=== PATIENT | male | born 1980 | race Hispanic/Latino ===

== ENCOUNTER → 2022-07-15 | Outpatient (CLI) | payer OTHER | END | disposition home or self-care (01) | LOC: RAH 08:56 | PROVIDERS: ATTEND Surgery | DX: K62.3 Rectal prolapse (principal) | CPT/HCPCS: 74270 ==

== ENCOUNTER → 2024-01-08 03:04 | Emergency (ER) | payer OTHER ==
[~2024-01-08] VITALS: Ht 165.1 cm; Wt 77.1 kg
[2024-01-08 03:04] VITALS: BP 120/74; PULSE 71; RESP 19
[~2024-01-08 03:04] MED LIST: ASPIRIN 325MG TAB PO ONE; DOCU-116 PO; L.AC1CAP6 PO; LORAZEPAM 2 MG/ML 1 ML VIAL IM ONE; NITROGLYCERIN 1GM OINT 1 INCH/1GM TD ONE; PSYL0.4C2 PO
== END | disposition left against medical advice (07) ==
LOC: EDH 03:04
DX: R45.851 Suicidal ideations (principal); F20.9 Schizophrenia, unspecified; F31.9 Bipolar disorder, unspecified; Z79.899 Other long term (current) drug therapy

== ENCOUNTER 2024-01-27 10:13 | Emergency (ER) | payer BC, OTHER ==
[~2024-01-27] VITALS: Ht 170.2 cm; Wt 77.1 kg
[~2024-01-27 10:13] MED LIST changes: -ASPIRIN 325MG TAB PO ONE; -LORAZEPAM 2 MG/ML 1 ML VIAL IM ONE; -NITROGLYCERIN 1GM OINT 1 INCH/1GM TD ONE
[2024-01-27] MEDS: ONDANSETRON 4MG INJ IVP ONE (11:15)
[2024-01-27] MEDS: MORPHINE 4 MG SYG IVP ONE (11:15)
[2024-01-27 11:40] LABS: BASOPHILS # (AUTO) 0.04 K/uL (0.00-0.20); BASOPHILS % (AUTO) 0.5 % (0.0-5.0); EOSINOPHILS # (AUTO) 0.07 K/uL (0.00-0.70); EOSINOPHILS % (AUTO) 0.9 % (0.0-8.0); HEMATOCRIT 41.5 % (42-54); IMMATURE GRANULOCYTE ABSOLUTE 0.03 K/uL (0-1); LYMPHOCYTES # (AUTO) 2.1 K/uL (1.0-4.8); LYMPHOCYTES % (AUTO) 25.2 % (21.0-51.0); MEAN CORPUSCULAR HGB CONC 34.9 g/dL (32.0-36.0); MEAN CORPUSCULAR VOLUME 94.3 fL (79-99); MONOCYTES # (AUTO) 0.6 K/uL (0.1-1.0); MONOCYTES % (AUTO) 7.1 % (3.0-13.0); NEUTROPHILS # (AUTO) 5.4 K/uL (1.8-7.7); NEUTROPHILS % (AUTO) 65.9 % (40.0-77.0); PLATELET COUNT (AUTO) 202 K/uL (130-400); RED CELL DISTRIBUTION WIDTH 11.8 % (11.0-15.5); WHITE BLOOD COUNT (AUTO) 8.2 K/uL (4.8-10.8)
[2024-01-27 11:44] LABS: CREATININE 0.9 mg/dL (0.5-1.3)
[2024-01-27 11:48] LABS: ALBUMIN 3.9 g/dL (3.5-5.0); BILIRUBIN,TOTAL 0.4 mg/dL (0.2-1.0); TOTAL PROTEIN, SERUM 7.5 g/dL (6.0-8.3)
[2024-01-27 13:14] LABS: APPEARANCE,URINE CLEAR (CLEAR); BILIRUBIN,URINE NEGATIVE (NEGATIVE); COLOR,URINE COLORLESS (YELLOW); GLUCOSE, URINE (UA) NEGATIVE (NEGATIVE); KETONES,URINE NEGATIVE (NEGATIVE); LEUKOCYTE ESTERASE ,URINE NEGATIVE Leu/uL (NEGATIVE); NITRATE,URINE NEGATIVE (NEGATIVE); OCCULT BLOOD,URINE NEGATIVE (NEGATIVE); PROTEIN,URINE NEGATIVE (NEGATIVE); UROBILINOGEN,URINE 0.2 mg/dL (0.2-1.0)
[2024-01-27] MEDS: KETOROLAC 15MG/ML VIAL (15MG/ML) IV ONE (13:15)
[2024-01-27 13:24] LABS: ADD UA MICROSCOPIC NO
[2024-01-27] MEDS ORDERED: IOHEXOL-350 75 ML VIAL IV ONE (13:30)
[2024-01-27] MEDS ORDERED: ACET-2079 PO (14:30)
[2024-01-27 15:04] VITALS: BP 113/65; PULSE 66; RESP 18; O2SAT 98
== END 2024-01-27 15:05 | disposition home or self-care (01) ==
LOC: EDH 10:13
DX: R10.32 Left lower quadrant pain (principal); F41.9 Anxiety disorder, unspecified; F31.9 Bipolar disorder, unspecified; F17.200 Nicotine dependence, unspecified, uncomplicated
CPT/HCPCS: 99284; 74177; 96374; 96375; 80053; 83690; 85025; 81003; 36415; J2405; J2270; J1885; Q9967

== ENCOUNTER 2024-03-19 11:27 | Emergency (ER) | payer BC ==
[~2024-03-19] VITALS: Ht 170.2 cm; Wt 77.1 kg
[~2024-03-19 11:27] MED LIST changes: +ACET-2079 PO
[2024-03-19] MEDS: ONDANSETRON ODT 4MG TAB SL ONE (11:50)
[2024-03-19] MEDS: OXYCODONE/ACETAMIN 5/325MG TAB PO ONE (11:52)
[2024-03-19] MEDS: KETOROLAC 60 MG VIAL (30MG/ML) IM ONE (14:14)
[2024-03-19 15:23] VITALS: BP 121/76; PULSE 51; RESP 15; O2SAT 96
[2024-03-19] MEDS ORDERED: HYDR-4060 PO (15:59)
[2024-03-19] MEDS ORDERED: CYCL10TA16 PO (15:59)
[2024-03-19] MEDS ORDERED: PRED50TA2 PO (15:59)
== END 2024-03-19 16:08 | disposition home or self-care (01) ==
LOC: EDH 11:27
DX: S16.1XXA Strain of muscle, fascia and tendon at neck level, initial encounter (principal); M47.812 Spondylosis without myelopathy or radiculopathy, cervical region; F41.9 Anxiety disorder, unspecified; F32.A Depression, unspecified; X58.XXXA Exposure to other specified factors, initial encounter; Y93.89 Activity, other specified; Y92.89 Other specified places as the place of occurrence of the external cause; Y99.8 Other external cause status
CPT/HCPCS: 99285; 70450; 72125; 96372; J1885

== ENCOUNTER 2024-03-20 15:51 | Emergency (ER) | payer BC ==
[~2024-03-20] VITALS: Ht 170.2 cm; Wt 77.1 kg
[~2024-03-20 15:51] MED LIST changes: +CYCL10TA16 PO; +HYDR-4060 PO; +PRED50TA2 PO
[2024-03-20 16:08] VITALS: BP 121/83; PULSE 75; RESP 16
== END 2024-03-20 17:24 | disposition left against medical advice (07) ==
LOC: EDH 15:51
DX: S16.1XXA Strain of muscle, fascia and tendon at neck level, initial encounter (principal); F17.200 Nicotine dependence, unspecified, uncomplicated; F41.9 Anxiety disorder, unspecified; Z53.21 Procedure and treatment not carried out due to patient leaving prior to being seen by health care provider; Z79.52 Long term (current) use of systemic steroids; X58.XXXA Exposure to other specified factors, initial encounter; Y93.89 Activity, other specified; Y92.89 Other specified places as the place of occurrence of the external cause; Y99.8 Other external cause status